=== PATIENT | male | born 1945 ===

== ENCOUNTER 2024-12-14 06:00 | Day surgery (SDC) | payer OTHER ==
[~2024-12-14 06:00] MED LIST: ATACAND16 MG PO; NORVASC5 MG PO
[2024-12-14] MEDS ORDERED: fentaNYL CITRATE 50 MCG/ML AMPUL IV PUSH ONE (08:45)
[2024-12-14] MEDS ORDERED: MIDAZOLAM HCL 2 MG/2 ML VIAL IV ONE (08:45)
[2024-12-14] MEDS ORDERED: DIPHENHYDRAMINE HCL 50 MG/ML VIAL 1ML IV ONE (08:45)
[2024-12-14] MEDS ORDERED: ONDANSETRON HCL 2 MG/ML VIAL IV ONE (08:45)
== END 2024-12-14 10:20 | disposition home or self-care (01) ==
LOC: CIR.AMB 06:00
PROVIDERS: ATTEND Colon & Rectal Surgery
DX: K62.1 Rectal polyp (principal); K63.5 Polyp of colon; K57.30 Diverticulosis of large intestine without perforation or abscess without bleeding; Z88.6 Allergy status to analgesic agent; R63.4 Abnormal weight loss; R10.13 Epigastric pain; K44.9 Diaphragmatic hernia without obstruction or gangrene